=== PATIENT | female | born 1985 | race Caucasian/White ===

== ENCOUNTER 2017-09-17 18:27 | Outpatient (CLI) | payer OTHER ==
[~2017-09-17] VITALS: Ht 162.6 cm; Wt 88.0 kg
[~2017-09-17 18:27] MED LIST: AMOX TR-K CLV1 EAC4 PO; DOCUSATE SODIU100 MG PO; ENDOCET 5-3251 EACH PO; IBUPROFEN600 MG PO
[2017-09-17 18:56] VITALS: BP 120/80
[2017-09-17 20:10] VITALS: BP 132/88
[2017-09-17] MEDS ORDERED: TYLENOL PM EX-1 EACH PO (20:23)
[2017-09-17] MEDS ORDERED: TYLENOL EXTRA500 MG PO (20:24)
== END 2017-09-17 21:25 | disposition home or self-care (01) ==
LOC: LDRP-OP → 2WEST 18:29 → LDRP-OP 10-15 14:53
DX: O26.893 Other specified pregnancy related conditions, third trimester (principal); O99.333 Smoking (tobacco) complicating pregnancy, third trimester; F17.200 Nicotine dependence, unspecified, uncomplicated; O99.343 Other mental disorders complicating pregnancy, third trimester; F41.9 Anxiety disorder, unspecified; F11.11 Opioid abuse, in remission; O98.513 Other viral diseases complicating pregnancy, third trimester; R87.820 Cervical low risk human papillomavirus (HPV) DNA test positive; O98.413 Viral hepatitis complicating pregnancy, third trimester; B19.20 Unspecified viral hepatitis C without hepatic coma; Z3A.40 40 weeks gestation of pregnancy
CPT/HCPCS: 59025; G0378

== ENCOUNTER 2017-09-22 22:05 | Inpatient (IN) | payer OTHER ==
[~2017-09-22 22:05] MED LIST changes: +TYLENOL EXTRA500 MG PO; +TYLENOL PM EX-1 EACH PO
[2017-09-22 22:29] VITALS: BP 136/88
[2017-09-22 22:59] LABS: BASOPHIL (%) 0.5 % (0-1); BASOPHIL COUNT 0.1 K/uL (0-0.1); EOSINOPHIL (%) 0.6 % (0-5); EOSINOPHIL COUNT 0.1 K/uL (0-0.3); HEMATOCRIT 39.5 % (36.0-46.0); HEMOGLOBIN 13.6 G/DL (11.9-15.5); IMMATURE GRANULOCYTE (%) 1.2 % (0.0-0.7); LYMPHOCYTE (%) 28.6 % (15-42); LYMPHOCYTE COUNT 3.7 K/uL (1.0-2.8); MCH 29.6 PG (29.0-34.0); MCHC 34.4 G/DL (30.0-36.0); MCV 85.9 FL (83-99); MONOCYTE (%) 8.5 % (3-12); MONOCYTE COUNT 1.1 K/uL (0-0.8); NEUTROPHIL (%) 60.6 % (45-76); NEUTROPHIL COUNT 7.8 K/uL (1.8-6.4); RBC DIS.WIDTH-CV 12.9 % (11.8-14.6); RBC DIS.WIDTH-SD 39.8 % (39-53); WHITE BLOOD COUNT 12.9 K/uL (4.1-10.2)
[2017-09-22 23:35] LABS: PLAT.SUFFICIENCY ADEQUATE; PLATELET COUNT 261 K/uL (156-360)
[2017-09-22 23:39] VITALS: BP 134/89
[2017-09-22 23:51] VITALS: BP 127/77
[2017-09-23] VITALS (8 sets, daily range): BP systolic 117–152; BP diastolic 60–88
[2017-09-23 01:22] LABS: AMPHETAMINE NEGATIVE (500 ng/mL); BARBITURATES NEGATIVE (200 ng/mL); BENZODIAZEPINES NEGATIVE (150 ng/mL); BUPRENORPHINE NEGATIVE (10 ng/mL); COCAINE NEGATIVE (150 ng/mL); METHADONE NEGATIVE (200 ng/mL); METHAMPHETAMINE NEGATIVE (500 ng/mL); OPIATES (MORPHINE) NEGATIVE (100 ng/mL); OXYCODONE NEGATIVE (100 ng/mL); PHENCYCLIDINE NEGATIVE (25 ng/mL); PROPOXYPHENE NEGATIVE (300 ng/mL); THC CANNABINOIDS NEGATIVE (50 ng/mL); TRICYCLIC ANTIDEPRESSANTS NEGATIVE (300 ng/mL)
[2017-09-23 06:47] LABS: BASOPHIL (%) 0.3 % (0-1); BASOPHIL COUNT 0.1 K/uL (0-0.1); EOSINOPHIL (%) 0.2 % (0-5); HEMATOCRIT 31.2 % (36.0-46.0); IMMATURE GRANULOCYTE (%) 1.1 % (0.0-0.7); LYMPHOCYTE (%) 22.1 % (15-42); LYMPHOCYTE COUNT 3.7 K/uL (1.0-2.8); MCHC 34.3 G/DL (30.0-36.0); MCV 87.4 FL (83-99); MONOCYTE (%) 8.3 % (3-12); MONOCYTE COUNT 1.4 K/uL (0-0.8); NEUTROPHIL COUNT 11.4 K/uL (1.8-6.4); PLATELET COUNT 235 K/uL (156-360); RBC DIS.WIDTH-CV 12.9 % (11.8-14.6); RBC DIS.WIDTH-SD 40.8 % (39-53); WHITE BLOOD COUNT 16.8 K/uL (4.1-10.2)
[2017-09-23 06:54] LABS: HEMOGLOBIN 10.7 G/DL (11.9-15.5); RED BLOOD COUNT 3.57 M/uL (3.80-5.20)
[2017-09-24 07:00] VITALS: BP 116/64
[2017-09-24] MEDS ORDERED: IBUPROFEN800 MG PO (10:12)
== END 2017-09-24 14:10 | disposition home or self-care (01) | DRG 774 ==
LOC: LDRP-OP 22:05 → 2WEST 22:06 → LDRP-OP 10-15 06:07
PROVIDERS: Advanced Practice Midwife
PROC: 10E0XZZ Delivery of Products of Conception, External Approach (ICD-10-PCS; principal; 2017-09-22)
DX: O48.0 Post-term pregnancy (principal); O72.1 Other immediate postpartum hemorrhage; O99.02 Anemia complicating childbirth; D62 Acute posthemorrhagic anemia; O98.42 Viral hepatitis complicating childbirth; B18.2 Chronic viral hepatitis C; O99.334 Smoking (tobacco) complicating childbirth; F17.200 Nicotine dependence, unspecified, uncomplicated; O26.03 Excessive weight gain in pregnancy, third trimester; O99.214 Obesity complicating childbirth; E66.3 Overweight; Z62.810 Personal history of physical and sexual abuse in childhood; Z68.27 Body mass index [BMI] 27.0-27.9, adult; Z3A.40 40 weeks gestation of pregnancy; Z37.0 Single live birth
CPT/HCPCS: 85025; J1050; J7120